=== PATIENT | male | born 2000 | race Caucasian/White ===

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

== ENCOUNTER 2022-02-17 16:51 | Emergency (ER) | payer MEDICAID ==
[~2022-02-17] VITALS: Ht 176 cm; Wt 113.0 kg
--- NOTE | 2022-02-17 16:58 | ED GI ---
General Chief Complaint: Abdominal/GI Problems Stated Complaint: ABD PAIN History of Present Illness Date Seen by Provider: Feb 17, 2022 Time Seen by Provider: 16:58 Initial Comments 21-year-old male presents with lower abdominal pain. He reports his dull. Been there on and off for about a week. Gets worse with activity such as laying on his belly, get out of car, walking and lifting. Does not get worse with any bowel movement. He denies any urinary symptoms. Denies any injuries. He does report that they have been a lot more increased activity. No reports of fever, chills, nausea or vomiting. He does have some mild loose stool. Allergies and Home Medications Allergies Coded Allergies: No Known Drug Allergies (Unverified , 02/17/22) Patient Home Medication List Home Medication List Reviewed: Yes Hydrocodone/Acetaminophen (Hydrocodone-Acetamin 7.5-325) 7.5 Mg-325 Mg Tablet, 1 EACH PO Q4H Prescribed by: OLIVA FAIR on 02/17/22 0266 Review of Systems Review of Systems Constitutional: No chills, No fever Respiratory: Denies Cough, Denies Shortness of Air Cardiovascular: Denies Chest Pain, Denies Lightheadedness Gastrointestinal: Abdominal Pain; Denies Nausea, Denies Vomiting Genitourinary: Denies Burning, Denies Frequency Musculoskeletal: see HPI Skin: no symptoms reported Psychiatric/Neurological: No Symptoms Reported Endocrine: No Symptoms Reported Hematologic/Lymphatic: No Symptoms Reported Past Brvssbm-Raxkbf-Aygaps Hx Seasonal Allergies Seasonal Allergies: No Past Medical History Surgeries: No Respiratory: Yes Asthma Cardiac: No Neurological: No Genitourinary: No Gastrointestinal: No Musculoskeletal: No Endocrine: No HEENT: No Cancer: No Psychosocial: No Integumentary: No Blood Disorders: No Physical Exam Vital Signs Vital Signs - First Documented 02/17/22 02/17/22 16:55 18:26 Temp 36.0 Pulse 90 Resp 18 B/P (MAP) 148/74 Pulse Ox 99 O2 Delivery Room Air Capillary Refill : Height/Weight/BMI Height: 5'9.00" Weight: 168lbs. oz. 76.352968fm; 21.09 BMI Method:Stated General Appearance: WD/WN, no apparent distress HEENT: PERRL/EOMI, pharynx normal Neck: full range of motion, supple Respiratory: lungs clear, normal breath sounds Cardiovascular: normal peripheral pulses, regular rate, rhythm Gastrointestinal: soft; No distended, No guarding, No rebound; tenderness (Very minimal tenderness lower suprapubic mid abdomen) Extremities: normal range of motion, non-tender Back: no CVA tenderness, no vertebral tenderness Neurologic/Psychiatric: alert, normal mood/affect, oriented x 3 Skin: normal color, warm/dry Progress/Results/Core Measures Results/Orders Lab Results Laboratory Tests Test 02/17/22 16:55 02/17/22 17:18 Range/Units Urine Color YELLOW Urine Clarity CLEAR Urine pH 6.5 5-9 Urine Specific [place] 1.015 L 1.016-1.022 Urine Protein NEGATIVE NEGATIVE Urine Glucose (UA) NEGATIVE NEGATIVE Urine Ketones NEGATIVE NEGATIVE Urine Nitrite NEGATIVE NEGATIVE Urine Bilirubin NEGATIVE NEGATIVE Urine Urobilinogen 0.2 < = 1.0 MG/DL Urine Leukocyte Esterase NEGATIVE NEGATIVE Urine RBC (Auto) NEGATIVE NEGATIVE Urine RBC RARE /HPF Urine WBC RARE /HPF Urine Squamous Epithelial Cells NONE /HPF Urine Crystals NONE /LPF Urine Bacteria NEGATIVE /HPF Urine Casts NONE /LPF Urine Mucus NEGATIVE /LPF Urine Culture Indicated NO White Blood Count 15.2 H 4.3-11.0 10^3/uL Red Blood Count 5.43 4.30-5.52 10^6/uL Hemoglobin 15.7 13.3-17.7 g/dL Hematocrit 45 40-54 % Mean Corpuscular Volume 82 80-99 fL Mean Corpuscular Hemoglobin 29 25-34 pg Mean Corpuscular Hemoglobin Concent 35 32-36 g/dL Red Cell Distribution Width 13.2 10.0-14.5 % Platelet Count 328 130-400 10^3/uL Mean Platelet Volume 10.2 9.0-12.2 fL Immature Granulocyte % (Auto) 1 % Neutrophils (%) (Auto) 58 42-75 % Lymphocytes (%) (Auto) 31 12-44 % Monocytes (%) (Auto) 8 0-12 % Eosinophils (%) (Auto) 2 0-10 % Basophils (%) (Auto) 1 0-10 % Neutrophils # (Auto) 8.8 H 1.8-7.8 10^3/uL Lymphocytes # (Auto) 4.6 H 1.0-4.0 10^3/uL Monocytes # (Auto) 1.2 H 0.0-1.0 10^3/uL Eosinophils # (Auto) 0.3 0.0-0.3 10^3/uL Basophils # (Auto) 0.1 0.0-0.1 10^3/uL Immature Granulocyte # (Auto) 0.1 0.0-0.1 10^3/uL Neutrophils % (Manual) 54 % Lymphocytes % (Manual) 42 % Monocytes % (Manual) 2 % Eosinophils % (Manual) 2 % Sodium Level 138 135-145 MMOL/L Potassium Level 4.2 3.6-5.0 MMOL/L Chloride Level 102 98-107 MMOL/L Carbon Dioxide Level 24 21-32 MMOL/L Anion Gap 12 5-14 MMOL/L Blood Urea Nitrogen 13 7-18 MG/DL Creatinine 0.78 0.60-1.30 MG/DL Estimat Glomerular Filtration Rate 131 BUN/Creatinine Ratio 17 Glucose Level 102 70-105 MG/DL Calcium Level 9.6 8.5-10.1 MG/DL Corrected Calcium 9.4 8.5-10.1 MG/DL Total Bilirubin < 0.2 0.1-1.0 MG/DL Aspartate Amino Transf (AST/SGOT) < 5 L 5-34 U/L Alanine Aminotransferase (ALT/SGPT) < 5 0-55 U/L Alkaline Phosphatase 100 40-136 U/L C-Reactive Protein 1.98 H <0.50 MG/DL Total Protein 7.0 6.4-8.2 GM/DL Albumin 4.2 3.2-4.5 GM/DL My Orders Orders - EVANS,BROOKS L DO Cbc With Automated Diff (02/17/22 17:01) Comprehensive Metabolic Panel (02/17/22 17:01) Ua Culture If Indicated (02/17/22 17:01) Crp Fs (02/17/22 17:01) Abdomen Flat & Upright/Decub (02/17/22 17:01) Manual Differential (02/17/22 17:18) Ct Abd/Pelv W (Appendicitis) (02/17/22 17:32) Iohexol Injection (Omnipaque 350 Mg/Ml 1 (02/17/22 17:45) Received Contrast (Hold Metformin- Contr (02/17/22 17:45) Sodium Chloride Flush (Catheter Flush Sy (02/17/22 17:45) Ns (Ivpb) (Sodium Chloride 0.9% Ivpb Bag (02/17/22 17:45) Ciprofloxacin Iv 400mg/200ml (Cipro Iv S (02/17/22 21:00) Metronidazole 500mg/100ml Ivpb (Flagyl 5 (02/17/22 22:00) Metronidazole 500mg/100ml Ivpb (Flagyl 5 (02/17/22 18:58) Ciprofloxacin Iv 400mg/200ml (Cipro Iv S (02/17/22 19:27) Medications Given in ED Vital Signs/I&O 02/17/22 02/17/22 16:55 18:26 Temp 36.0 36.0 Pulse 90 95 Resp 18 18 B/P (MAP) 148/74 Pulse Ox 99 99 O2 Delivery Room Air 02/18/22 00:00 Intake Total 300 ml Balance 300 ml Progress Progress Note : Progress Note Patient with an acute appendicitis. We will start him on Cipro and Flagyl per Dr. Fair. Patient will be admitted [facility] in [place]. Family request private vehicle to transfer. We will allow this following administration of the IV antibiotics. Patient stable upon transfer. He was instructed to go directly to the hospital. Departure Communication (Admissions) Time/Spoke to Admitting Phy: 18:45 Patient to be admitted to Dr. Fair. Patient to be n.p.o. after midnight. IV antibiotics. Surgery is planned for 10 AM tomorrow morning. Impression Primary Impression: Appendicitis Qualified Codes: K35.30 - Acute appendicitis with localized peritonitis, without perforation or gangrene Disposition: 30 STILL A PATIENT Condition: Stable Admissions Decision to Admit Reason: Admit from ER (General) Decision to Admit/Date: Feb 17, 2022 Time/Decision to Admit Time: 18:15 Departure-Patient Inst. Referrals: PRESTON MCCARTHY MD (PCP/Family) Primary Care Physician BROOKS EVANS DO Feb 17, 2022 16:58
[2022-02-17 17:06] LABS: BILIRUBIN,URINE NEGATIVE (NEGATIVE); CLARITY,URINE CLEAR; COLOR,URINE YELLOW; GLUCOSE, URINE (UA) NEGATIVE (NEGATIVE); KETONES,URINE NEGATIVE (NEGATIVE); LEUKOCYTE ESTERASE ,URINE NEGATIVE (NEGATIVE); NITRITE,URINE NEGATIVE (NEGATIVE); PH,URINE 6.5 (5-9); PROTEIN,URINE NEGATIVE (NEGATIVE)
[2022-02-17 17:08] LABS: BACTERIA,URINE NEGATIVE /HPF; RBC,URINE RARE /HPF; WBC,URINE RARE /HPF
[2022-02-17 17:19] LABS: BASOPHILS # (AUTO) 0.1 10^3/uL (0.0-0.1); BASOPHILS % (AUTO) 1 % (0-10); EOSINOPHILS # (AUTO) 0.3 10^3/uL (0.0-0.3); EOSINOPHILS % (AUTO) 2 % (0-10); HEMATOCRIT 45 % (40-54); HEMOGLOBIN 15.7 g/dL (13.3-17.7); LYMPHOCYTES # (AUTO) 4.6 10^3/uL (1.0-4.0); LYMPHOCYTES % (AUTO) 31 % (12-44); MEAN CORPUSCULAR HEMOGLOBIN 29 pg (25-34); MEAN CORPUSCULAR HGB CONC 35 g/dL (32-36); MEAN CORPUSCULAR VOLUME 82 fL (80-99); MEAN PLATELET VOLUME 10.2 fL (9.0-12.2); MONOCYTES # (AUTO) 1.2 10^3/uL (0.0-1.0); MONOCYTES % (AUTO) 8 % (0-12); NEUTROPHILS # (AUTO) 8.8 10^3/uL (1.8-7.8); NEUTROPHILS % (AUTO) 58 % (42-75); PLATELET COUNT 328 10^3/uL (130-400); WHITE BLOOD COUNT 15.2 10^3/uL (4.3-11.0)
--- NOTE | 2022-02-17 17:30 | Diagnostic Imaging Report ---
EXAMINATION: Abdomen 2 view. HISTORY: Abd pain. COMPARISON: None available. FINDINGS: There is a moderate amount of gas and stool throughout the colon. Nonobstructive bowel gas pattern. No radiopaque foreign body. The lung bases are clear. The osseous structures are intact. IMPRESSION: Moderate stool burden without other acute abnormality in the abdomen. Dictated by: Dictated on workstation # [id number]
[2022-02-17 17:42] LABS: BILIRUBIN,TOTAL < 0.2 MG/DL (0.1-1.0); BUN/CREATININE RATIO 17; CALCIUM 9.6 MG/DL (8.5-10.1); CARBON DIOXIDE 24 MMOL/L (21-32); CHLORIDE 102 MMOL/L (98-107); CREATININE SERUM 0.78 MG/DL (0.60-1.30); GFR ESTIMATED 131; GLUCOSE 102 MG/DL (70-105); POTASSIUM 4.2 MMOL/L (3.6-5.0); SODIUM 138 MMOL/L (135-145)
[2022-02-17 17:43] LABS: ALBUMIN 4.2 GM/DL (3.2-4.5); ALKALINE PHOSPHATASE 100 U/L (40-136)
[2022-02-17] MEDS ORDERED: HOLD METFORMIN - RECEIVED CONTRAST 20 ML VIAL IV SCH (17:45)
[2022-02-17] MEDS ORDERED: CATHETER FLUSH 10 ML SYR IV PRN (17:45)
[2022-02-17] MEDS ORDERED: IOHEXOL 350 MG/ML 100 ML (OMNIPAQUE 350) VIAL IV ONE (17:45)
[2022-02-17] MEDS ORDERED: NS 100 ML (IVPB) BAG IV ONE (17:45)
[2022-02-17 17:47] LABS: EOSINOPHILS % (MANUAL) 2 %; LYMPHOCYTES % (MANUAL) 42 %; MONOCYTES % (MANUAL) 2 %; NEUTROPHILS % (MANUAL) 54 %
[2022-02-17 17:53] LABS: ALANINE AMINOTRANSFERASE < 5 U/L (0-55)
--- NOTE | 2022-02-17 18:08 | Diagnostic Imaging Report ---
EXAMINATION: CT abdomen and pelvis with intravenous contrast. TECHNIQUE: Multiple contiguous axial images were obtained through the abdomen and pelvis after the uneventful administration of intravenous contrast. All CT scans use one or more of the following dose optimizing techniques: automated exposure control, MA and/or KvP adjustment based on patient size and exam type or iterative reconstruction. HISTORY: RLQ abd pain, elevated WBC COMPARISON: None available. FINDINGS: Lung bases: The lung bases are clear. Solid organs: There is diffuse hypoattenuation of the liver which can be seen with hepatic steatosis. The gallbladder is normal. There is no biliary ductal dilation. Pancreas is normal. Spleen is normal. Adrenal glands are normal. The kidneys are normal without hydronephrosis. Bowel: The stomach and small bowel are normal without obstruction. The colon is unremarkable. The appendix is dilated with wall thickening and surrounding inflammatory stranding. Peritoneum: No loculated fluid collection or free air. There is infiltrate stranding within the right lower quadrant. Multiple prominent mesenteric and right lower quadrant lymph nodes are likely reactive. Vasculature: Normal without aneurysm. Musculoskeletal: No suspicious osseous lesion or compression fracture. Pelvis: The prostate gland is normal. The urinary bladder is normal. IMPRESSION: 1. Findings of acute appendicitis without abscess or free air. 2. Hepatic steatosis. Dictated by: Dictated on workstation # [id number]
[2022-02-17] MEDS ORDERED: metroNIDAZOLE 500MG/100ML IVPB 100 ML ONE (18:58)
[2022-02-17] MEDS ORDERED: CIPROFLOXACIN IV 400MG/200ML 200 ML IV ONE (19:27)
[2022-02-17] MEDS ORDERED: CIPROFLOXACIN IV 400MG/200ML 200 ML IV SCH (21:00)
[2022-02-17] MEDS ORDERED: metroNIDAZOLE 500MG/100ML IVPB 100 ML IV SCH (22:00)
[2022-02-17] MEDS ORDERED: HYDR-3817 PO (23:09)
--- NOTE | 2022-02-17 23:43 | HISTORY AND PHYSICAL ---
DATE OF SERVICE: ATTENDING PRIMARY CARE PHYSICIAN: Dr. Annette Sky. HISTORY OF PRESENT ILLNESS: The patient is a 21-year-old male who presented to [facility] with pain in the right lower abdominal quadrant. He states that he has had some mild discomfort for the past week. However, in the past day, this has become more localized towards the right lower abdominal quadrant. He reports that with physical activity and walking, the pain is worse. He does not report any fever, no chills as well as no nausea, no vomiting. He states that he has also had some looser stools in the past day as well. A CT scan was performed, which did show inflammation of the appendix consistent with a noncomplicated appendicitis. PAST MEDICAL HISTORY: Asthma. PAST SURGICAL HISTORY: None. ALLERGIES: No known drug allergies. MEDICATIONS: None. SOCIAL HISTORY:3 Negative smoke, negative alcohol. FAMILY HISTORY: Noncontributory. VITAL SIGNS: Temperature 36.0, blood pressure 148/74, pulse 90, respirations 18, pulse ox 99% on room air. REVIEW OF SYSTEMS: This is a well-nourished male currently in no acute distress. He is not experiencing any shortness of breath or difficulty breathing. No chest pain, palpitations, diaphoresis. No nausea, vomiting, loose stools. No red blood per rectum, no dark tarry stools. No fever, chills, no recent inadvertent weight loss. All other review of systems negative. PHYSICAL EXAMINATION: Will be assessed upon examination the patient in the a.m. The patient's history was accrued through the emergency room physician as well as the patient's electronic medical records. LABORATORY DATA: WBC 15.2, hemoglobin 15.7, hematocrit 45, platelets 328. BUN 13, creatinine 0.78. ASSESSMENT AND PLAN: A 21-year-old male with noncomplicated acute appendicitis. Natural history of appendicitis will be explained to the patient as well as the risks and benefits of surgery. If amenable, we will then proceed with a laparoscopic appendectomy. Job ID: [id number] DocumentID: [id number] Dictated Date: 02/17/2022 23:13:59 Technical Operations Specialist Date: 02/17/2022 23:42:57 Dictated By: OLIVA FAIR MD
== END 2022-02-17 20:35 | disposition still patient (30) ==
LOC: EDUNIT# 16:51 → ER FS 16:52
DX: K35.80 Unspecified acute appendicitis (principal); Z28.310 Unvaccinated for COVID-19
CPT/HCPCS: 36415; 74019; 74177; 80053; 81000; 85007; 85027; 86141; Q9967

== ENCOUNTER 2022-02-17 21:28 | Day surgery (SDC) | payer MEDICAID ==
[~2022-02-17] VITALS: Ht 175 cm; Wt 111.1 kg
--- NOTE | 2022-02-17 23:08 | Progress Note-Pre Operative ---
Pre-Operative Progress Note Date of Available H&P: Feb 17, 2022 Date H&P Reviewed: Feb 17, 2022 Time H&P Reviewed: 23:00 History & Physical: No changes noted Pre-Operative Diagnosis: acute appendicitis OLIVA FAIR MD Feb 17, 2022 23:08
[2022-02-17] MEDS ORDERED: HYDR-3817 PO (23:09)
--- NOTE | 2022-02-17 23:09 | Discharge Inst-Surgical ---
D/C Lap Instructions-MARV New, Converted, or Re-Newed RX: RX on Chart Follow Up Appt in 2 weeks Activity as tolerated No driving for 24 hours No driving while on pain medications Incentive Spirometry use every 2 hours while awake Regular Diet Symptoms to Report: Fever over 101 degree F, Nausea/Vomiting Infection Signs and Symptoms to report: Increased redness, Foul odor of wound, Increased drainage Bathing instructions: May shower Operative Area Clean/Dry; Keep incision clean/dry If any problems/questions: Contact your physician or go to Emergency Room OLIVA FAIR MD Feb 17, 2022 23:09
[2022-02-17] MEDS ORDERED: ONDANSETRON 4 MG/2 ML (SDV) Z0FRAN IV PRN (23:15)
[2022-02-17] MEDS ORDERED: ONDANSETRON 4 MG/2 ML (SDV) Z0FRAN IVP PRN (23:15)
[2022-02-17] MEDS ORDERED: HYDROcodone/APAP 7.5 MG/325 MG (LORTAB, LORCET PLUS) TABLET PO PRN (23:15)
[2022-02-17] MEDS: NS IV 1000 ML 1,000 ML IV SCH (23:39)
[2022-02-17] MEDS: morphine INJ 4 MG/ML 1 ML (VIAL/SYRINGE) IV PRN (23:54)
[2022-02-18] VITALS (10 sets, daily range): BP systolic 93–131; BP diastolic 48–74
[2022-02-18] MEDS ORDERED: metroNIDAZOLE 500 MG/100 ML IVPB (PRE-MIX) IV SCH (02:00)
[2022-02-18] MEDS ORDERED: metroNIDAZOLE 500MG/100ML IVPB 100 ML IV SCH (06:00)
[2022-02-18] MEDS ORDERED: CIPROFLOXACIN IV 400MG/200ML 200 ML IV SCH (09:00)
[2022-02-18] MEDS ORDERED: CIPROFLOXACIN 400 MG/D5W 200 ML (PRE-MIX) IV SCH (09:00)
[2022-02-18] MEDS ORDERED: FAMOTIDINE 20MG/2ML IV (PEPCID) IVP SCH (09:00)
[2022-02-18] MEDS: NS IV 1000 ML 1,000 ML IV SCH (10:16)
[2022-02-18] MEDS ORDERED: LIDOCAINE/EPI 2% 1:200,00 (XYLOCAINE) 20 ML VIAL ONE (10:35)
[2022-02-18] MEDS ORDERED: morphine INJ 10 MG/ML 1ML (SYR OR VIAL) ONE (10:39)
[2022-02-18] MEDS ORDERED: MEPERIDINE (DEMEROL) INJ 50 MG/ML ONE (10:40)
[2022-02-18] MEDS ORDERED: proPOfol 200 MG/20 ML (DIPRIVAN) VIAL IV ONE (10:40)
[2022-02-18] MEDS ORDERED: LIDOCAINE PF 2% 5 ML (XYLOCAINE) VIAL ONE (10:40)
[2022-02-18] MEDS ORDERED: ROCURONIUM 50 MG/5 ML (ZEMURON) VIAL IV ONE (10:40)
[2022-02-18] MEDS ORDERED: fentaNYL INJ 100 MCG/2 ML AMP ONE ×3 (10:40→11:49)
[2022-02-18] MEDS ORDERED: ONDANSETRON 4 MG/2 ML (SDV) Z0FRAN ONE ×2 (10:40)
[2022-02-18] MEDS ORDERED: SEVOFLURANE (ULTANE) 15 ML INHAL SOLN ONE (10:40)
[2022-02-18] MEDS ORDERED: MIDAZOLAM 2 MG/2 ML (VERSED) VIAL ONE (10:41)
[2022-02-18] MEDS ORDERED: LACTATED RINGERS 1,000 ML IV PRN ×2 (10:45→11:00)
[2022-02-18] MEDS ORDERED: fentaNYL INJ 100 MCG/2 ML AMP IVP ONE (11:00)
[2022-02-18] MEDS ORDERED: morphine INJ 10 MG/ML 1ML (SYR OR VIAL) IVP ONE (11:00)
[2022-02-18] MEDS ORDERED: ONDANSETRON 4 MG/2 ML (SDV) Z0FRAN IVP PRN (11:00)
[2022-02-18] MEDS ORDERED: MEPERIDINE (DEMEROL) INJ 50 MG/ML IVP ONE (11:00)
[2022-02-18] MEDS ORDERED: PROMETHAZINE INJ 25 MG/ML (PHENERGAN) AMP IVP ONE (11:00)
--- NOTE | 2022-02-18 11:25 | Progress Note ---
Standard Progress Note Progress Notes/Assess & Plan Date Seen by a Provider: Feb 18, 2022 Time Seen by a Provider: 10:00 Progress/Assessment & Plan PE: chest-clear, good BS bilat heart-regular, no murmurs extr-no LE edema, neg homans abd-soft, pain RLQ at mcburney's point. OLIVA FAIR MD Feb 18, 2022 11:25
--- NOTE | 2022-02-18 11:58 | Progress Note-Post Operative ---
Post-Operative Progess Note Surgeon (s)/Woods Boss (s) Surgeon OLIVA FAIR MD Woods Boss: grady singer RHIA Pre-Operative Diagnosis acute appendicitis Post-Operative Diagnosis same Procedure & Operative Findings Date of Procedure 02/18/22 Procedure Performed/Findings laparoscopic appendectomy Anesthesia Type get Estimated Blood Loss Estimated blood loss (mL): minimal Specimens/Packing Specimens Removed appendix OLIVA FAIR MD Feb 18, 2022 11:58
[2022-02-18] MEDS: fentaNYL INJ 100 MCG/2 ML AMP IVP PRN ×2 (12:55→14:19)
--- NOTE | 2022-02-18 13:10 | OPERATIVE REPORT ---
DATE OF SERVICE: 02/18/2022 ATTENDING PRIMARY CARE PHYSICIAN: Dr. Annette Sky. PREOPERATIVE DIAGNOSIS: Acute appendicitis. POSTOPERATIVE DIAGNOSIS: Acute appendicitis. No perforation. PROCEDURE PERFORMED: Laparoscopic appendectomy. SURGEON: Oliva Fair MD. DIRECTOR EHS: Mitch Huff APRN. ANESTHESIA: General endotracheal. ESTIMATED BLOOD LOSS: Minimal. FINDINGS: Inflamed appendix, no perforation. Small bowel, colon appeared normal. DISPOSITION: The patient tolerated the procedure well. INDICATIONS FOR PROCEDURE: The patient is a 21-year-old male, who presented to [facility] with approximately a 4-day history of abdominal pain. He states that the pain became more severe and more localized towards the right lower abdominal quadrant over time. He also reported increasing pain. He is unsure if he had any fever or chills. No episodes of nausea nor vomiting; however, loss of appetite. No known diarrhea, nor constipation. A CT scan was performed, which did show an inflamed appendix consistent with appendicitis. DESCRIPTION OF PROCEDURE: The patient was brought to the operating room and laid supine on the table. After adequate IV pain and sedative medications and general endotracheal intubation, the abdomen was prepped and draped in a standard surgical fashion. A 0.5% Marcaine with epinephrine was used to anesthetize the overlying skin on the left upper abdominal quadrant and transverse skin incision was made using 15 blade. A 0 silk suture was applied to the medial aspect incision for retraction and a Veress needle was inserted with a low opening pressure of 0 mmHg and the abdomen was then insufflated to 15 mmHg pressure. The Veress needle was removed and a 5 mm XL trocar was placed followed by a 5 mm 45-degree angle laparoscope visualizing the peritoneal cavity. A four-quadrant abdominal exploration was performed. There was an inflamed appendix stuck to the sidewall of the peritoneal lining. There was no perforation. The small bowel and colon appeared normal. Under direct visualization, we then proceeded to place a supraumbilical 10 mm port after the skin and peritoneal lining were anesthetized using 0.5% Marcaine with epinephrine and a transverse skin incision was made using a 15 blade. In a similar manner, a suprapubic 5 mm port was placed. The patient was then placed in Trendelenburg position as well as plane right side up, left side down. The appendix was then gently dissected using blunt dissection as well as electrocautery on the hook instrument. A window was then created between the base of the appendix and the mesoappendix using a [place] dissector and the appendix was then stapled and transected at the cecal base using a PRASHANT 45 mm stapler with a 2.5 mm thickness load. The mesoappendix was then stapled and transected with the same stapler. Good hemostasis was observed. The appendix was then removed through the 10 mm port site using an EndoCatch bag. The area was then irrigated and suctioned out. The 10 mm port site fascia and peritoneum were then closed under direct visualization using a Chinmay-Paty device and 0 Vicryl suture. The abdomen was then desufflated and the remaining ports removed. All skin incisions were closed using 4-0 Monocryl running subcuticular sutures. The wounds were then cleaned and covered with Dermabond. The patient tolerated the procedure well. We will start IV normal pain medication as well as a clear liquid diet. Once he is tolerating clears, has good pain control with oral pain medications, ambulating well, we will discharge him home where he will be instructed to do no heavy lifting or exertion for the next two weeks. Job ID: [id number] DocumentID: [id number] Dictated Date: 02/18/2022 12:06:10 It Support Consultant Date: 02/18/2022 13:10:37 Dictated By: OLIVA FAIR MD
--- NOTE | 2022-02-18 13:34 | Anesthesia-General Post-Op ---
General Patient Condition Mental Status/LOC: Same as Preop Cardiovascular: Satisfactory Nausea/Vomiting: Absent Respiratory: Satisfactory Pain: Controlled Complications: Absent Post Op Complications Complications None Follow Up Care/Instructions Patient Instructions None needed. Anesthesia/Patient Condition Patient Condition Patient is doing well, no complaints, stable vital signs, no apparent adverse anesthesia problems. No complications reported per nursing. HALLIE SÁNCHEZ CRNA Feb 18, 2022 13:34
[2022-02-18] MEDS: morphine INJ 4 MG/ML 1 ML (VIAL/SYRINGE) IV PRN (13:35)
== END 2022-02-18 15:40 | disposition home or self-care (01) ==
LOC: SDC 21:28 → UNDOADMOB 21:28 → 4TH 21:28 → SDC 02-18 15:40 → UNDODISOB 02-18 15:40 → EDSTATUS 02-20 16:37
PROVIDERS: ATTEND Surgery
DX: K35.80 Unspecified acute appendicitis (principal)
CPT/HCPCS: 87081; 88304; 96375; 96376